=== PATIENT | male | born 1990 | race Caucasian/White ===

== ENCOUNTER 2021-05-03 08:33 | Emergency (ER) | payer OTHER, SELFPAY ==
[2021-05-03 08:40] VITALS: BP 146/93; PULSE 66; RESP 20; TEMP 36.1; O2SAT 100
--- NOTE | 2021-05-03 08:54 | ED.NAVMDI ---
HPI - Nausea/Vomiting/Diarrhea General Chief complaint: Nausea/Vomiting/Diarrhea Stated complaint: nausea and diahhrea Time Seen by Provider: 05/03/21 08:54 Source: patient and RN notes reviewed Mode of arrival: ambulatory Limitations: no limitations History of Present Illness HPI Narrative: 31-year-old male presents with concern for persistent diarrhea. Reports little over 2 weeks ago the diarrhea started after eating out. Reports he has approximately 4-5 diarrhea stools daily. Reports if he takes Pepto-Bismol he will have less frequent diarrhea stools, however diarrhea is still present. He denies abdominal pain. Reports slight feeling of bloating, nausea and a few episodes of vomiting throughout the last 2 weeks. He denies fever, bloody stool, dark-colored stools. Denies any history of similar problems in the past. Reports he has been tested biweekly for Covid at work and all have been. He has not been vaccinated for Covid. MD elicited complaint: diarrhea Related Data Allergies Allergy/AdvReac Type Severity Reaction Status Date / Time No Known Allergies Allergy Verified 05/03/21 09:09 Review of Systems Review of Systems: CONSTITUTIONAL: Denies malaise, chills, sweats, or fever. ENT: Denies rhinorrhea, congestion, sinus pain, otalgia or sore throat. CARDIOVASCULAR: Denies chest pain, palpitations, or edema. RESPIRATORY: Denies cough or dyspnea. GASTROINTESTINAL: Denies abdominal pain, bloody, or mucous stools. Reports diarrhea, occasional nausea and vomiting. GENITOURINARY: Denies dysuria or hematuria. MUSCULOSKELETAL: Denies myalgia. NEUROLOGIC: Denies numbness, weakness, or headache. All systems reviewed & are unremarkable except as noted in HPI and below PMFSH Social History Social History Gender identity (if verbalized by the patient): Male Comments At time of signature, agree with nursing past medical, surgical, social and family history. There is no relevant family history pertinent to the presenting complaint Exam Narrative: GENERAL: Well-appearing, well-nourished, and in no acute distress. HEAD: Normocephalic, atraumatic. EYES: PERRLA, conjunctivae clear, and EOMI. ENT: Nares clear, turbinates pink, no rhinorrhea or epistaxis. Mucous membranes moist. Oropharynx without edema, erythema, or lesions. Tonsils not enlarged and without exudate. NECK: Supple. No lymphadenopathy CHEST: Speaks in full sentences. No respiratory distress. HEART: Regular rate and rhythm. ABDOMEN: Soft, flat, nondistended. No guarding, rebound tenderness, or rigid. No pulsatilla masses. Bowel sounds present in all four quadrants. No organomegaly. Negative Stock?s sign. No periumbilical tenderness. No Supra public tenderness or distension. SKIN: Warm, dry, no rash. NEURO: Alert and oriented x3. PSYCH: Normal mood and affect Course Course Emergency Course: Patient is aware of diagnosis, understands and agrees to treatment plan. Anticipatory guidance given. Patient agrees to follow-up as directed and is aware of reasons to seek care at the emergency department. Portions of this record may have been created with voice recognition software Vital Signs Vital signs: Vital Signs Temperature 97 F L 05/03/21 08:40 Pulse Rate 66 05/03/21 08:40 Respiratory Rate 20 05/03/21 08:40 Blood Pressure 146/93 H 05/03/21 08:40 Pulse Oximetry 100 05/03/21 08:40 Temperature 97 F L 05/03/21 08:40 Pulse Rate 66 05/03/21 08:40 Respiratory Rate 20 05/03/21 08:40 Blood Pressure 146/93 H 05/03/21 08:40 Pulse Oximetry 100 05/03/21 08:40 Reviewed. Pt has been instructed to follow up with his primary care provider within the next week regarding his elevated blood pressure today. MDM - Nausea/Vomiting/Diarrhea MDM Narrative Medical decision making narrative: No evidence of pancreatitis, AAA, cholecystitis, choledocholithiasis, cholangitis, mesenteric ischemia, small bowel obstruction, appendicitis, or pelvic etiology suc
== END 2021-05-03 09:18 | disposition home or self-care (01) ==
PROVIDERS: Emergency Provider Nurse Practitioner
DX: R19.7 Diarrhea, unspecified (principal)
CPT/HCPCS: 99213; G0463